=== PATIENT | female | born 1960 | race Hispanic/Latino ===

== ENCOUNTER 2018-05-09 19:59 | Emergency (ER) | payer OTHER ==
[2018-05-09] MEDS ORDERED: Acetaminophen/Codeine 30-300mg Tablet ONE (21:03)
[2018-05-09 21:05] LABS: Bilirubin Negative (Negative); Blood, Urine Negative (Negative); Clarity Clear (Clear); Glucose, Urine (Dipstick) Negative (Negative); Leukocyte Negative (Negative); Nitrite Negative (Negative); Protein, Urine (Dipstick) Negative (Neg-Trace); Specific Gravity, Urine 1.015 (1.005-1.030); Urobilinogen 0.2 mg/dL (0.2-1.0); pH, Urine 5.5 (5.0-9.0)
--- NOTE | 2018-05-09 21:42 | RAD ---
THREE VIEWS OF THE LEFT SHOULDER: 05/09/18 INDICATION: History of left shoulder injury in January. COMPARISON: None. FINDINGS: There is moderate degenerative arthrosis of the left AC joint. No acute fracture or subluxation is ev ident. The visualized left lung is clear. Glenohumeral alignment appears within normal limits. IMPRESSION: Moderate AC joint osteoarthrosis. POS: [facility]
== END 2018-05-09 21:47 | disposition home or self-care (01) ==
LOC: NAV ERS 19:59
DX: M25.512 Pain in left shoulder (principal); E11.9 Type 2 diabetes mellitus without complications; K21.9 Gastro-esophageal reflux disease without esophagitis; I10 Essential (primary) hypertension; J45.909 Unspecified asthma, uncomplicated; F41.9 Anxiety disorder, unspecified; F32.9 Major depressive disorder, single episode, unspecified; Z87.891 Personal history of nicotine dependence; Z79.899 Other long term (current) drug therapy
CPT/HCPCS: 81003